=== PATIENT | male | born 1950 | race Caucasian/White ===

== ENCOUNTER 2023-03-08 12:02 | Inpatient (IN) | payer MEDICARE ==
[2023-03-08] MEDS ORDERED: Sodium Chloride 0.9% 10 ML Syringe FLUSH PRN (12:54)
[2023-03-08] MEDS ORDERED: Sodium Chloride 0.9% 1,000 ML IV SCH (13:15)
[2023-03-08 13:21] LABS: HEMATOCRIT 35.7 % (40.0-54.0); HEMOGLOBIN 12.3 g/dL (13.0-18.0); MEAN CORPUSCULAR HEMOGLOBIN 33.4 pg (27.0-32.0); MEAN CORPUSCULAR HGB CONC 34.5 g/dL (31.0-35.0); MEAN PLATELET VOLUME 10.7 fL (6.0-10.0); RED BLOOD CELL COUNT 3.68 M/uL (4.50-6.50); RED CELL DISTRIBUTION WIDTH 13.1 % (11.0-16.0); WHITE BLOOD CELL COUNT,WBC 4.5 K/uL (4.0-11.0)
[2023-03-08 13:25] LABS: APPEARANCE,URINE CLEAR (CLEAR); BILIRUBIN,URINE SMALL (NEGATIVE); COLOR,URINE YELLOW; GLUCOSE,URINE NEGATIVE (NEGATIVE); KETONES,URINE TRACE mg/dL (NEGATIVE); LEUKOCYTE ESTERASE,URINE NEGATIVE (NEGATIVE); NITRITE,URINE NEGATIVE (NEGATIVE); OCCULT BLOOD,URINE NEGATIVE (NEGATIVE); PROTEIN,URINE 100 mg/dL (NEGATIVE); UROBILINOGEN,URINE 0.2 E.U./dL (0.2-1.0)
[2023-03-08 13:29] LABS: AMORPHOUS SEDIMENT,URINE MANY /HPF; HYALINE CASTS,URINE FEW /HPF; RBC,URINE 0-5 /HPF; SQUAMOUS EPITHELIAL CELLS,UR OCCASIONAL /HPF; WBC,URINE 0-5 /HPF
[2023-03-08 13:55] LABS: A/G RATIO 0.7 (0.8-2.0); ANION GAP 14.4 mmol/L (5.0-15.0); BILIRUBIN TOTAL 0.9 mg/dL (0.0-1.0); BUN/CREATININE RATIO 15.2 (6-25); CARBON DIOXIDE,CO2 27.1 mmol/L (21.0-32.0); CREATININE 2.24 mg/dL (0.70-1.30); EST CRCL DRUG DOSING (CG) 27.05 mL/min; PHOSPHORUS 3.5 mg/dL (2.5-4.9); POTASSIUM,K 3.5 mmol/L (3.5-5.1); PROTEIN TOTAL,TP 7.6 g/dL (6.4-8.2); TROPONIN I HIGH SENSITIVITY 12.5 pg/ml (<=60.4)
[2023-03-08] MEDS ORDERED: Albuterol/Ipratropium 3.0-0.5 MG/3 ML Neb Soln ONE (14:26)
[2023-03-08] MEDS ORDERED: Albuterol/Ipratropium 3.0-0.5 MG/3 ML Neb Soln NEB SCH (14:30)
[2023-03-08] MEDS: Sodium Chloride 0.9% 1,000 ML IV SCH (16:35)
[2023-03-08 17:20] LABS: ANION GAP 14.9 mmol/L (5.0-15.0); BUN/CREATININE RATIO 17.9 (6-25); CALCIUM 8.5 mg/dL (8.5-10.1); CARBON DIOXIDE,CO2 24.7 mmol/L (21.0-32.0); CREATININE 1.79 mg/dL (0.70-1.30); EST CRCL DRUG DOSING (CG) 31.83 mL/min; POTASSIUM,K 3.6 mmol/L (3.5-5.1)
[2023-03-08] MEDS: Apixaban 5 MG Tab PO SCH (19:17)
[2023-03-09] MEDS: Sodium Chloride 0.9% 1,000 ML IV SCH (01:49)
[2023-03-09] MEDS: Apixaban 5 MG Tab PO SCH (07:26)
[2023-03-09] MEDS ORDERED: atorvaSTATin 40 MG Tab PO SCH (08:00)
[2023-03-09] MEDS ORDERED: Lisinopril 5 MG Tab PO SCH (08:00)
[2023-03-09 08:34] LABS: ANION GAP 13.6 mmol/L (5.0-15.0); BUN/CREATININE RATIO 15.2 (6-25); CALCIUM 8.3 mg/dL (8.5-10.1); CARBON DIOXIDE,CO2 26.6 mmol/L (21.0-32.0); CREATININE 1.25 mg/dL (0.70-1.30); EST CRCL DRUG DOSING (CG) 45.58 mL/min; POTASSIUM,K 4.2 mmol/L (3.5-5.1)
[2023-03-09] MEDS ORDERED: Sodium Chloride 0.9% 50 ML SDV FLUSH ONE (09:26)
[2023-03-09] MEDS ORDERED: Iopamidol 755 Mg/ML 100 ML Bottle IV SCH (09:30)
[2023-03-09] MEDS ORDERED: Iopamidol 755 Mg/ML 100 ML Bottle IV ONE (10:00)
[2023-03-09 14:12] VITALS: BP 121/71; PULSE 58
== END 2023-03-09 13:37 | disposition home or self-care (01) | DRG 684 ==
LOC: LB.ED 12:02 → LB.MS 15:40
PROVIDERS: ADMIT Surgery; ATTEND Emergency Medicine
DX: N17.9 Acute kidney failure, unspecified (principal); E86.0 Dehydration; Z79.82 Long term (current) use of aspirin; Z79.899 Other long term (current) drug therapy; R79.89 Other specified abnormal findings of blood chemistry; D69.6 Thrombocytopenia, unspecified; I71.21 Aneurysm of the ascending aorta, without rupture; I95.9 Hypotension, unspecified; I10 Essential (primary) hypertension; D64.9 Anemia, unspecified; Z79.01 Long term (current) use of anticoagulants; Z95.2 Presence of prosthetic heart valve; Z86.010 Personal history of colon polyps; Z86.73 Personal history of transient ischemic attack (TIA), and cerebral infarction without residual deficits; Z95.5 Presence of coronary angioplasty implant and graft; Z93.3 Colostomy status; Z87.891 Personal history of nicotine dependence
CPT/HCPCS: 36415; 71045; 71275; 80048; 80053; 81001; 83735; 83880; 84100; 84484; 85027; 85379; 93005; 93010; 96360; 99221; 99239; 99285-25; A9270-GY; J3490; J7030; J7620; Q9967

== ENCOUNTER 2023-03-30 16:07 | Emergency (ER) | payer MEDICARE ==
[2023-03-30] MEDS ORDERED: Sodium Chloride 0.9% 10 ML Syringe FLUSH PRN (16:30)
[2023-03-30] MEDS ORDERED: Sodium Chloride 0.9% 250 ML IV SCH (16:45)
[2023-03-30] MEDS: Sodium Chloride 0.9% 250 ML IV ONE (16:55)
[2023-03-30 17:23] LABS: GLUCOSE,POC 84 mg/dL (74-110)
[2023-03-30] MEDS: Sodium Chloride 0.9% 1,000 ML IV SCH (18:29)
== END 2023-03-30 18:40 ==
LOC: LB.ED 16:07
DX: I63.9 Cerebral infarction, unspecified (principal); R47.81 Slurred speech; I95.9 Hypotension, unspecified; R74.02 Elevation of levels of lactic acid dehydrogenase [LDH]; R74.8 Abnormal levels of other serum enzymes; R79.89 Other specified abnormal findings of blood chemistry; I25.10 Atherosclerotic heart disease of native coronary artery without angina pectoris; Z79.82 Long term (current) use of aspirin; Z79.899 Other long term (current) drug therapy
CPT/HCPCS: 70450; 82947; 99285; J7030; J7050

== ENCOUNTER 2023-05-23 17:06 | Emergency (ER) | payer MEDICARE ==
[2023-05-23] MEDS ORDERED: Sodium Chloride 0.9% 10 ML Syringe FLUSH PRN (17:31)
[2023-05-23] MEDS: Sodium Chloride 0.9% 1,000 ML IV SCH (17:50)
[2023-05-23 18:18] LABS: A/G RATIO 0.6 (0.8-2.0); ALBUMIN 2.7 g/dL (3.4-5.0); BILIRUBIN DIRECT 0.1 mg/dL (0.0-0.3); BILIRUBIN INDIRECT 0.5 mg/dL (<= 0.7); BILIRUBIN TOTAL 0.6 mg/dL (0.0-1.0); PROTEIN TOTAL,TP 7.4 g/dL (6.4-8.2)
[2023-05-23 22:08] LABS: BASOPHILS ABSOLUTE AUTO 0.02 K/uL (0.02-0.10); BASOPHILS PERCENT AUTO 0.4 % (0.0-0.5); EOSINOPHILS ABSOLUTE AUTO 0.24 K/uL (0.04-0.40); EOSINOPHILS PERCENT AUTO 4.5 % (1.0-5.0); HEMATOCRIT 23.3 % (40.0-54.0); LYMPHOCYTES ABSOLUTE AUTO 1.87 K/uL (1.50-4.00); LYMPHOCYTES PERCENT AUTO 34.9 % (20.0-40.0); MEAN CORPUSCULAR HEMOGLOBIN 31.3 pg (27.0-32.0); MEAN CORPUSCULAR HGB CONC 33.5 g/dL (31.0-35.0); MEAN CORPUSCULAR VOLUME 94 fL (76-96); MONOCYTES ABSOLUTE AUTO 0.43 K/uL (0.20-0.80); NEUTROPHILS PERCENT AUTO 52.2 % (45.0-70.0); RED BLOOD CELL COUNT 2.49 M/uL (4.50-6.50); RED CELL DISTRIBUTION WIDTH 17.1 % (11.0-16.0); WHITE BLOOD CELL COUNT,WBC 5.4 K/uL (4.0-11.0)
[2023-05-23 22:10] LABS: HEMOGLOBIN 7.8 g/dL (13.0-18.0); PLATELET COUNT,PLT 66 K/uL (150-400)
[2023-05-23 22:15] LABS: ANION GAP 22.6 mmol/L (5.0-15.0); BUN/CREATININE RATIO 25.5 (6-25); CALCIUM 7.9 mg/dL (8.5-10.1); CREATININE 2.39 mg/dL (0.70-1.30); EST CRCL DRUG DOSING (CG) 23.99 mL/min; POTASSIUM,K 4.6 mmol/L (3.5-5.1)
[2023-05-25 22:47] LABS: FERRITIN 818 ng/mL (31-409)
[2023-05-26 08:09] LABS: TRANSFERRIN 168 mg/dL (200-360)
[2023-05-26 18:40] LABS: FOLATE,SERUM >22.3 ng/mL (>=5.9)
== END 2023-05-23 22:55 | disposition home or self-care (01) ==
LOC: LB.ED 17:06
DX: E86.0 Dehydration (principal); D64.9 Anemia, unspecified; R19.7 Diarrhea, unspecified; Z79.82 Long term (current) use of aspirin; Z95.5 Presence of coronary angioplasty implant and graft
CPT/HCPCS: 36415; 36430; 71250; 74176; 80048; 80076; 82607; 82728; 82746; 84443; 84466; 85025; 86850; 86900; 86901; 86920; 86922; 96360; 96361; 99284; 99285-25; J7030; P9016